=== PATIENT | male | born 1975 | race Caucasian/White ===

== ENCOUNTER 2018-02-04 13:28 | Emergency (ER) | payer SELFPAY ==
[2018-02-04 13:30] VITALS: BP 171/107; PULSE 85; RESP 18; TEMP 36.7; O2SAT 98; BMI 39.5
--- NOTE | 2018-02-04 14:10 | EKG12_ITS ---
Test Reason : SYNCOPE Blood Pressure : / mmHG Vent. Rate : 078 BPM Atrial Rate : 078 BPM P-R Int : 206 ms QRS Dur : 102 ms QT Int : 374 ms P-R-T Axes : 051 015 034 degrees QTc Int : 426 ms Normal sinus rhythm Low voltage QRS (LIMB LEADS) Confirmed by CALVIN CABRERA, JESSEE ([id number]), science editor FIORELLA LOPEZ ([id number]) on 02/08/2018 10:15:25 AM Referred By: MACKENZIE Confirmed By:JESSEE SIMPSON MD
--- NOTE | 2018-02-04 14:12 | ED.DCSUM_ITS ---
- ER Visit Summary Date of Service: 02/04/18 Chief Complaint: Dizziness History of Present Illness: The patient is a 42 M presents for reported dizzy spinning sensation starting yesterday at work. 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 States standing felt room spinning and nausea. There is no syncopal episodes. No lightheaded symptoms. States symptoms was subsiding last evening today worsened again. No vomiting. No chest pains or shortness of breath. No recent sinus infection. States did have some ear pounding sensations.There was no ringing. No ear pain. History of hypertension, states he stopped his lisinopril a month ago due to side effects. States made him feel like a zombie. No urinary symptoms. No previous similar symptoms in the past. Physical Examination: General: Alert and oriented ?3, no acute distress HEENT: Normocephalic, atraumatic. Moist mucosa membranes Neck: supple, nontender. Cardiovascular: Regular rate and rhythm, no murmurs Respiratory: Normal breath sounds, symmetric, no distress Abdomen: Soft, nontender, nondistended Extremities: Nontender, no edema, pulses intact ?4 Neuro: NIH equals 0, [place]-Hallpike was positive to the left. Test Results: EKG: Sinus rate of [address] or T wave changes. Emergency Department Course and Treatment: Nursing protocol obtain EKG with concerns of syncope which was normal. However evaluation more concerns of vertigo with a positive Yung-Hallpike to the left. Performed the Yusef maneuver which improved his symptoms significantly however still nausea. Given meclizine monitored, symptoms improved he was ambulated with no difficulties. Does have elevated blood pressure, states he stopped his medicine as written by the ED lisinopril due to side effects. He did not want any medications that would cause him to be tired and fatigued. Discussed using amlodipine started at 5 mg once a day. He states he is get an appointment with PCP with his mother's physician. He will check his blood pressure in the morning and at night and keep a log. Signs and symptoms discussed return. All questions were answered. Treatment Plan: [] Disposition: Discharge Impression: 1. Vertigo 2. Elevated blood pressure This note was generated with [employer] software. It may contain incorrect words, spelling, and punctuation that were not noted in review of the chart prior to signing ED Disposition - Plan for ED Patient: Disposition: Home or Assisted Living Chief Complaint: Syncope Diagnosis: Vertigo, Elevated blood pressure reading in office without diagnosis of hypertension Instructions: ED BPV Vertigo Prescriptions: Amlodipine [Norvasc] 5 mg PO DAILY #30 tablet Meclizine HCl [Antivert] 25 mg PO TID PRN #15 tablet PRN Reason: Dizziness Referrals: Care Physician,No Primary [Primary Care Provider] - Additional Instructions: Follow-up with physician in the next week for blood pressure checks. Keep a log in the morning and at night of your blood pressure. If spitting returns may performed the same maneuver done in the ED prior to taking your medication.
[2018-02-04] MEDS: Meclizine HCl 25 MG Tablet PO (14:31)
[2018-02-04 14:51] VITALS: BP 158/122; PULSE 88; RESP 18; O2SAT 97
[2018-02-04] MEDS: amLODIPine 5 MG Tablet PO (15:18)
[2018-02-04 15:19] VITALS: BP 161/101; PULSE 70; RESP 18; O2SAT 98
[2018-02-04 16:09] VITALS: BP 139/100; PULSE 78; RESP 18; O2SAT 95
== END 2018-02-04 16:10 | disposition home or self-care (01) ==
PROVIDERS: Emergency Provider Emergency Medicine
DX: R42 Dizziness and giddiness (principal); R03.0 Elevated blood-pressure reading, without diagnosis of hypertension; R11.0 Nausea; I10 Essential (primary) hypertension; Z72.0 Tobacco use
CPT/HCPCS: 93005; 99282

== ENCOUNTER 2018-09-12 13:06 | Emergency (ER) | payer MEDICAID, SELFPAY ==
[2018-09-12 13:09] VITALS: BP 177/107; PULSE 79; RESP 18; TEMP 36.6; O2SAT 97; BMI 39.0
--- NOTE | 2018-09-12 13:33 | CT_ITS ---
STUDY: CT BRAIN WITHOUT CONTRAST REASON FOR EXAM: Male, 42 years old. One week history of vertigo. Hypertension. RADIATION DOSAGE (If Supplied By Facility): CTDIvol = ( 44.99 ) mGy, DLP = ( 812.98 ) mGycm TECHNIQUE: Transaxial CT imaging of the brain was performed without administration of intravenous contrast material. Individualized dose optimization techniques were used for this CT. COMPARISON: No relevant priors. FINDINGS: Normal soft tissue structures. Normal calvarium. Normal size ventricles and extra-axial spaces for the patient's age. Normal white matter tracts of the cerebral hemispheres. Normal basal ganglia and thalami. Normal brainstem. Normal cerebellum. There is no intracranial hemorrhage. There are no findings of an acute ischemic infarction. Mild degree of mucosal thickening of the maxillary sinuses. CT/Brain/Head without Contrast IMPRESSION: Normal unenhanced CT scan of the brain. Electronically Signed: Tommie Arroyo, at 14:31 EDT , Service support ,
--- NOTE | 2018-09-12 13:33 | EKG12_ITS ---
Test Reason : VERTIGO Blood Pressure : / mmHG Vent. Rate : 072 BPM Atrial Rate : 072 BPM P-R Int : 196 ms QRS Dur : 110 ms QT Int : 388 ms P-R-T Axes : 032 061 027 degrees QTc Int : 424 ms Normal sinus rhythm Normal ECG Confirmed by YEE STOREY ([id number]), state editor YAW RENEE ([id number]) on 09/20/2018 8:59:37 AM Referred By: BRITTANIE Confirmed By:YEE STOREY
--- NOTE | 2018-09-12 13:58 | ED.DCSUM_ITS ---
History of Present Illness Chief Complaint: Dizziness Informant: Patient Narrative: Patient presenting for evaluation secondary to vertigo and chest pain. Patient reports that he has been dealing with intermittent chest pain over the course of the last couple years. He does not really seem to be inducible other than currently it has been getting worse when he is having vertiginous episodes. Patient states that over the course of the last 2 weeks he has been dealing with issues with vertigo. He does describe this as a disequilibrium and a room spinning type sensation. He has been undergoing treatment by his primary care initially for treatment of an ear infection, now treatment with meclizine. Patient states that the symptoms definitely are worse with change in position, he denies any visual changes numbness or weakness or speech difficulty. He states that it has been getting worse to the point where now when he is at work he has to hold onto things in order to walk around. He denies any tinnitus. He did have dental work but it was multiple months ago. Past Medical History - Allergies and Home Meds Allergies/Adverse Reactions: Allergies No Known Allergies Allergy (Verified 09/12/18 13:11) Primary Care Physician: Care Physician,No Primary [NON-STAFF] - Smoking Status: Current every day smoker Review of Systems All systems negative except as indicated General: Denies: Chills, Fever, Malaise Eyes: Denies: Visual changes - bilaterally ENT: Denies: Bilateral ear pain Cardiovascular: Reports: Chest pain Respiratory: Denies: Dyspnea Gastrointestinal: Denies: Nausea, Vomiting Skin: Denies: Rash Neurological: Reports: - - Vertigo. Denies: Headache, Weakness, Parasthesia, Numbness Physical Exam Vital Signs/Narrative: Vital Signs Temp Pulse Resp BP Pulse Ox 09/12/18 13:09 98 F 79 18 177/107 H 97 Inital Vital Signs reviewed: Yes General: Well nourished, Well developed, No Acute Distress Head: Normocephalic, Atraumatic Eyes: Perrl, EOMI ENT: Moist mucous membranes, No rhinorrhea, TM's clear Neck: Supple, Nontender, - - No carotid bruits Cardiovascular: Regular rate, Regular rhythm, No murmurs Respiratory: No distress, CTA bilaterally, Chest nontender Abdomen: Soft, Nontender, Nondistended, Normal bowel sounds Back: Nontender, Normal Inspection Extremities: Nontender, No edema Skin: Normal color, No rash Neurological: Alert, Oriented x3, Cranial nerves II-XII grossly intact, Normal Strength, Normal Sensation, - - Negative impulse testing, positive [place]-Hallpike maneuver on the left with some rotary nystagmus and reproduction of symptoms. Negative cerebellar testing. Psychological: Normal affect, Normal Mood Diagnostic/Tx/Re-eval - EKG Initial EKG Interpretation: Sinus Rhythm, - - Normal sinus rhythm with a ventricular rate of 72. Isoelectric ST segments, normal T waves, no evidence of acute ischemia or arrhythmia - Medical Decision Making Patient presented secondary to vertigo and chest pain. Patient's chest pain seems rather atypical, it was worked up with an EKG, CBC chemistry and troponin which were all found to be grossly unremarkable. Patient's vertigo was assessed with a CT brain which was negative. This is clearly reproducible sudden onset sudden offset vertigo with rotary nystagmus with [place]-Hallpike to the left. I do believe this to be peripheral in nature. Patient's symptoms have been present for the last 2 weeks, he will be given referral to ear nose and throat given the refractory nature. Patient was discharged in stable condition. ED Disposition - Plan for ED Patient: Disposition: Home or Assisted Living Diagnosis: Vertigo Instructions: ED BPV Vertigo Referrals: Kyle Loya MD [STAFF PHYSICIAN] - 1 Week if not improving
[2018-09-12 14:04] LABS: Absolute Lymphocyte Count 2.13 X10^3/ul (0.83-4.51); Absolute Neutrophil Count 4.2 X10^3/uL (2.0-7.7); Basophil# 0.04 X10^3/uL; Basophil% 0.6 % (0-1); Eosinophil# 0.15 X10^3/uL; Eosinophils% 2.2 % (0-5); Hematocrit 42.9 % (40-54); Hemoglobin 14.9 g/dl (13.0-16.5); Lymphocyte # 2.13 X10^3/ul (4.0); Lymphocyte % 30.6 % (19-41); Mean Corp Hgb Conc 34.7 g/gl (32-36); Mean Corpuscular Volume 86.5 fL (80-94); Mean Platelet Vol. 8.6 fl (6.2-12.0); Monocyte# 0.44 X10^3/uL; Monocyte% 6.3 % (0-10); Neutrophil # 4.19 X10^3/uL (2.7-7.7); Neutrophil % 60.2 % (47-70); Platelet Count 248 K/mm3 (150-450); RBC Distribution Width CV 13.2 % (11.6-14.6); RBC Distribution Width SD 41.6 fl (35.1-43.9); Red Blood Count 4.96 M/mm3 (4.6-6.2)
[2018-09-12 14:05] VITALS: BP 140/102; PULSE 71; RESP 20; O2SAT 98
[2018-09-12 14:06] LABS: POSITIVE COUNT NO; POSITIVE DIFFERENTIAL NO; POSITIVE MORPHOLOGY NO
[2018-09-12 14:20] LABS: Anion Gap 4 (5-15); BUN 13 mg/dL (7-18); BUN/Creat Ratio 15.2 RATIO (10-20); Chloride 109 mmol/L (98-107); Creatinine, Serum 0.85 mg/dL (0.70-1.30); EST Glomerular Filtration Rate 104 mL/min (>60); Est Glom Filt Rate - Afr Amer 126 mL/min (>60); Estimated Creatinine Clearance 120.58 ml/min; Glucose 109 mg/dL (74-106); Potassium 3.8 mmol/L (3.5-5.1); Sodium Level 140 mmol/L (136-145)
--- NOTE | 2018-09-12 14:20 | RAD_ITS ---
STUDY: X-RAY CHEST REASON FOR EXAM: Male, 42 years old. Dizziness. TECHNIQUE: PA and lateral views of the chest. COMPARISON: None. FINDINGS: EKG electrodes are seen. Hyperinflation. Scattered calcified granulomas. The lungs are clear. There is no demonstrated pleural abnormality. Normal size heart. Normal mediastinum and natalie. Normal visualized pulmonary arteries. Normal visualized aortic arch and descending thoracic aorta. There are mild degenerative changes of the visualized thoracic spine. Normal visualized ribs, clavicles, and shoulders. There is no demonstrated abnormality of the visualized soft tissue structures of the upper abdomen. RAD/Chest PA and Lateral IMPRESSION: Hyperinflation. The lungs are clear. Electronically Signed: Tommie Arroyo, at 14:48 EDT , Service support ,
[2018-09-12 15:09] VITALS: BP 146/101; PULSE 70; RESP 17; O2SAT 98
--- NOTE | 2018-09-12 15:10 | ED.RN ---
PT GIVEN WRITTEN AND VERBAL DISCHARGE INSTRUCTIONS. PT EDUCATED TO FOLLOW UP WITH DR. EASTMAN. EDUCATED TO RETURN TO ED FOR NEW OR WORSENED SX. IV D/C AND COVERED WITH 2X2 GAUZE AND PAPER TAPE. PT DRESSES SELF AND AMBULATES OUT OF DEPT WITH FAMILY MEMBER.
== END 2018-09-12 15:12 | disposition home or self-care (01) ==
PROVIDERS: Emergency Provider Emergency Medicine; Family Provider Nurse Practitioner Family; PCP Nurse Practitioner Family
DX: R42 Dizziness and giddiness (principal); F17.200 Nicotine dependence, unspecified, uncomplicated; R07.9 Chest pain, unspecified
CPT/HCPCS: 70450; 71046; 80048; 84484; 85025; 93005; 99285; A4216

== ENCOUNTER 2018-10-03 12:38 | Emergency (ER) | payer MEDICAID, SELFPAY ==
[2018-10-03 12:39] VITALS: BP 160/102; PULSE 81; RESP 16; TEMP 36.2; O2SAT 97; BMI 38.3
--- NOTE | 2018-10-03 13:00 | EKG12_ITS ---
Test Reason : CP Blood Pressure : / mmHG Vent. Rate : 077 BPM Atrial Rate : 077 BPM P-R Int : 212 ms QRS Dur : 108 ms QT Int : 382 ms P-R-T Axes : 042 -79 028 degrees QTc Int : 432 ms Sinus rhythm with 1st degree A-V block Left axis deviation Abnormal ECG Confirmed by ELHAM CABRERA, CLAUDE ([id number]), editor city BRENDA GARCIA ([id number]) on 10/05/2018 9:12:52 AM Referred By: MAISHA/KLAUDIA Confirmed By:CLAUDE LIZARRAGA MD
--- NOTE | 2018-10-03 13:00 | RAD_ITS ---
STUDY: X-RAY CHEST REASON FOR EXAM: Male, 42 years old. Chest pain and back pain. TECHNIQUE: PA and lateral views of the chest. COMPARISON: Comparison is made with prior study dated September 12, 2018. FINDINGS: EKG electrodes are seen. Scattered calcified granulomas. Hyperinflation. There is no demonstrated pleural abnormality. Normal size heart. Normal mediastinum and natalie. Normal visualized pulmonary arteries. Normal visualized aortic arch and descending thoracic aorta. There are mild degenerative changes of the visualized thoracic spine. Normal visualized ribs, clavicles, and shoulders. There is no demonstrated abnormality of the visualized soft tissue structures of the upper abdomen. RAD/Chest PA and Lateral IMPRESSION: Hyperinflation. Scattered calcified granulomas. Electronically Signed: Tommie Arroyo, at 13:38 EDT , Service support ,
[2018-10-03 13:42] VITALS: PULSE 69; RESP 15; O2SAT 98
--- NOTE | 2018-10-03 14:18 | ED.VIS.GEN ---
History of Present Illness Chief Complaint: Chest Pain Informant: Patient Onset: Today Context: Sudden Onset Timing: Intermittent Quality: Pain Location: Central back that radiated anteriorly Current Severity: - - Absent Maximum Severity: Severe Worsened by: Nothing Relieved by: Nothing Associated Symptoms: No associated symptoms or radiation Narrative: Patient is a 42-year-old male who presents with\chest pain. This is his third visit for similar presentation. His work-up prior to times is negative. He does have history hypertension. He does smoke. He is overweight and has obstructive sleep apnea. He states he is compliant with his machine. He presently is pain-free. He denies leg pain, swelling discoloration. Denies pleuritic pain, hemoptysis or shortness of breath. Nurse informed me that he had a sense of impending doom. Prior similar symptoms: No Recent Illness/Hospitalization: No - Past Medical History (1) History of hypertension Status: Acute (2) Obstructive sleep apnea Status: Acute Past Medical History - Allergies and Home Meds Allergies/Adverse Reactions: Allergies No Known Allergies Allergy (Verified 10/03/18 12:40) Primary Care Physician: Deshaun Hunter, [employer] [Primary Care Provider] - Prior records reviewed: Yes Surgical History: no surgical history Lives: With Family Smoking Status: Current every day smoker Drugs: None Review of Systems General: Denies: Chills, Fever, Malaise, Subjective, Sweats Eyes: Denies: Visual changes - bilaterally, Blurred Vision - bilaterally, Diplopia ENT: Denies: Bilateral ear pain, Rhinorrhea, Sore throat Cardiovascular: Reports: Chest pain. Denies: Palpitations, Heart racing Respiratory: Denies: Dyspnea, Cough, Sputum Musculoskeletal: Reports: Back pain. Denies: Myalgias, Arthralgias, Neck pain, Swelling, Extremity Pain Skin: Reports: Rash, Wounds Neurological: Denies: Headache, Weakness, Parasthesia, Numbness Psych: Reports: Anxiety Hematologic: Denies: Easy bruising, Easy bleeding Allergy: Denies: Uticaria, Swelling of the mouth Physical Exam Vital Signs/Narrative: Vital Signs Temp Pulse Resp BP Pulse Ox 10/03/18 13:42 69 15 98 10/03/18 12:39 97.1 F L 81 16 160/102 H 97 Inital Vital Signs reviewed: Yes General: Well nourished, Well developed, No Acute Distress Head: Normocephalic, Atraumatic Eyes: Perrl, EOMI. Negative for: Pale conjunctiva, Scleral icterus, - ENT: Moist mucous membranes, No rhinorrhea Neck: Supple, Nontender, No lymphadenopathy, No JVD Cardiovascular: Regular rate, Regular rhythm, No murmurs, Normal S1, Normal S2 Respiratory: No distress, CTA bilaterally, Chest nontender Abdomen: Soft, Nontender, Nondistended, Normal bowel sounds, No masses. Negative for: Hepatomegaly, Splenomegaly, Mass, Pulsatile mass Rectal: Deferred Back: Nontender, Normal Inspection. Negative for: CVA tenderness, Spinal tenderness Extremities: Nontender, No edema, - - There is no asymmetry, swelling, discoloration, leg vein distention, palpable cords or tenderness along the distribution of the deep venous system. Skin: Normal color, No rash Neurological: Alert, Oriented x3, Cranial nerves II-XII grossly intact, Normal Strength, Normal Sensation Psychological: - - Patient appears anxious Diagnostic/Tx/Re-eval Impressions Chest X-Ray 10/03/18 13:00 IMPRESSION: Hyperinflation. Scattered calcified granulomas. Electronically Signed: Tommie Arroyo, at 13:38 EDT , Service support , 10/03/18 13:00 Chest PA and Lateral [RAD] Stat Laboratory Results 10/03/18 13:06 Troponin I < 0.015 - Rhythm Strip Rhythm Strip: Sinus Rhythm Rate: 69 Ectopy: None - EKG Initial EKG Interpretation: Sinus Rhythm - Ventricular rate is 77. NV interval is slightly prolonged at 212 ms., First-degree AV block. QRS duration 108 ms. QT interval is normal. There is no acute ischemic changes noted. [place] to the left. Prior: Unchanged - Medical Decision Making She presents with atypical pain. He has had prior visits with no etiology determined. He does report anxiousness. His heart score is 1. With essentially a normal EKG other than first-degree AV block and left axis and normal troponin based on recent literature patients at low risk for any event occurring within the next 30 days i.e. [place], ischemia requiring catheterization angioplasty or . Therefore he will be discharged home to follow-up with his physician. Patient's blood pressure is elevated however there is no neurologic respiratory or cardiac symptoms to warrant any further testing. ED Disposition - Plan for ED Patient: Diagnosis: Chest pain, Hypertension Instructions: ED HTN Established, ED Chest Pain NonCardiac Referrals: Deshaun Hunter, [employer] [Primary Care Provider] - 3-5 Days
--- NOTE | 2018-10-03 14:22 | ED.DCSUM_ITS ---
History of Present Illness Chief Complaint: Chest Pain Informant: Patient Onset: Today Context: Sudden Onset Timing: Intermittent Quality: Pain Location: Central back that radiated anteriorly Current Severity: - - Absent Maximum Severity: Severe Worsened by: Nothing Relieved by: Nothing Associated Symptoms: No associated symptoms or radiation Narrative: Patient is a 42-year-old male who presents with\chest pain. This is his third visit for similar presentation. His work-up prior to times is negative. He does have history hypertension. He does smoke. He is overweight and has obstructive sleep apnea. He states he is compliant with his machine. He presently is pain-free. He denies leg pain, swelling discoloration. Denies pleuritic pain, hemoptysis or shortness of breath. Nurse informed me that he had a sense of impending doom. Prior similar symptoms: No Recent Illness/Hospitalization: No - Past Medical History (1) History of hypertension Status: Acute (2) Obstructive sleep apnea Status: Acute Past Medical History - Allergies and Home Meds Allergies/Adverse Reactions: Allergies No Known Allergies Allergy (Verified 10/03/18 12:40) Primary Care Physician: Deshaun Hunter, [employer]IST[employer] [Primary Care Provider] - Prior records reviewed: Yes Surgical History: no surgical history Lives: With Family Smoking Status: Current every day smoker Drugs: None Review of Systems General: Denies: Chills, Fever, Malaise, Subjective, Sweats Eyes: Denies: Visual changes - bilaterally, Blurred Vision - bilaterally, Diplopia ENT: Denies: Bilateral ear pain, Rhinorrhea, Sore throat Cardiovascular: Reports: Chest pain. Denies: Palpitations, Heart racing Respiratory: Denies: Dyspnea, Cough, Sputum Musculoskeletal: Reports: Back pain. Denies: Myalgias, Arthralgias, Neck pain, Swelling, Extremity Pain Skin: Reports: Rash, Wounds Neurological: Denies: Headache, Weakness, Parasthesia, Numbness Psych: Reports: Anxiety Hematologic: Denies: Easy bruising, Easy bleeding Allergy: Denies: Uticaria, Swelling of the mouth Physical Exam Vital Signs/Narrative: Vital Signs Temp Pulse Resp BP Pulse Ox 10/03/18 13:42 69 15 98 10/03/18 12:39 97.1 F L 81 16 160/102 H 97 Inital Vital Signs reviewed: Yes General: Well nourished, Well developed, No Acute Distress Head: Normocephalic, Atraumatic Eyes: Perrl, EOMI. Negative for: Pale conjunctiva, Scleral icterus, - ENT: Moist mucous membranes, No rhinorrhea Neck: Supple, Nontender, No lymphadenopathy, No JVD Cardiovascular: Regular rate, Regular rhythm, No murmurs, Normal S1, Normal S2 Respiratory: No distress, CTA bilaterally, Chest nontender Abdomen: Soft, Nontender, Nondistended, Normal bowel sounds, No masses. Negativ e for: Hepatomegaly, Splenomegaly, Mass, Pulsatile mass Rectal: Deferred Back: Nontender, Normal Inspection. Negative for: CVA tenderness, Spinal ten derness Extremities: Nontender, No edema, - - There is no asymmetry, swelling, discoloration, leg vein distention, palpable cords or tenderness along the distribution of the deep venous system. Skin: Normal color, No rash Neurological: Alert, Oriented x3, Cranial nerves II-XII grossly intact, Normal Strength, Normal Sensation Psychological: - - Patient appears anxious Diagnostic/Tx/Re-eval Impressions Chest X-Ray 10/03/18 13:00 IMPRESSION: Hyperinflation. Scattered calcified granulomas. Electronically Signed: Tommie Arroyo, at 13:38 EDT , Service support , 10/03/18 13:00 Chest PA and Lateral [RAD] Stat Laboratory Results 10/03/18 13:06 Troponin I < 0.015 - Rhythm Strip Rhythm Strip: Sinus Rhythm Rate: 69 Ectopy: None - EKG Initial EKG Interpretation: Sinus Rhythm - Ventricular rate is 77. SD interval is slightly prolonged at 212 ms., First-degree AV block. QRS duration 108 ms. QT interval is normal. There is no acute ischemic changes noted. [place] to the left. Prior: Unchanged - Medical Decision Making She presents with atypical pain. He has had prior visits with no etiology determined. He does report anxiousness. His heart score is 1. With essentially a normal EKG other than first-degree AV block and left axis and normal troponin based on recent literature patients at low risk for any event occurring within the next 30 days i.e. [place], ischemia requiring catheterization angioplasty or . Therefore he will be discharged home to follow-up with his physician. Patient's blood pressure is elevated however there is no neur ologic respiratory or cardiac symptoms to warrant any further testing. ED Disposition - Plan for ED Patient: Diagnosis: Chest pain, Hypertension Instructions: ED HTN Established, ED Chest Pain NonCardiac Referrals: Deshaun Hunter, [employer]ET[employer] ASSISTANT-C [Primary Care Provider] - 3-5 Days
[2018-10-03 14:34] VITALS: BP 140/92; PULSE 75; RESP 15; O2SAT 97
[2018-10-03 15:08] VITALS: BP 141/102; PULSE 72; RESP 16; O2SAT 98
[2018-10-03 15:17] VITALS: BP 137/93; PULSE 68; RESP 15; O2SAT 98
--- NOTE | 2018-10-03 15:18 | ED.RN ---
PT GIVEN WRITTEN AND VERBAL DISCHARGE INSTRUCTIONS. PT VERBALIZES UNDERSTANDING AND DENIES ANY FURTHER QUESTIONS. PT IV D/C AND COVERED WITH 2X2 GAUZE AND PAPER TAPE. PT AMBULATES OUT OF DEPT WITH FAMILY.
== END 2018-10-03 15:19 | disposition home or self-care (01) ==
LOC: ED 13:21
PROVIDERS: Emergency Provider Emergency Medicine; Family Provider Nurse Practitioner Family; PCP Nurse Practitioner Family
DX: R07.9 Chest pain, unspecified (principal); I10 Essential (primary) hypertension; I44.0 Atrioventricular block, first degree; G47.33 Obstructive sleep apnea (adult) (pediatric); F17.200 Nicotine dependence, unspecified, uncomplicated
CPT/HCPCS: 71046; 84484; 93005; 99285; A4216

== ENCOUNTER 2020-05-02 12:09 | Emergency (ER) | payer MEDICAID, SELFPAY ==
[2020-05-02 12:09] VITALS: BP 164/116; PULSE 78; RESP 18; TEMP 35.6; O2SAT 98; BMI 44.6
--- NOTE | 2020-05-02 12:29 | RAD_ITS ---
STUDY: X-RAY CHEST REASON FOR EXAM: Male, 44 years old. COUGH, DIZZY TECHNIQUE: Frontal view of the chest COMPARISON: 03 October 2018 FINDINGS: There is a benign calcified right midlung granuloma. The lungs are clear and expanded. There is no demonstrated pleural abnormality. Normal size heart. Normal mediastinum and natalie. Normal visualized pulmonary arteries. Normal visualized aortic arch and descending thoracic aorta. Normal visualized thoracic spine. Normal visualized ribs, clavicles, and shoulders. There is no demonstrated abnormality of the visualized soft tissue structures of the upper abdomen. RAD/Chest 1 View (Portable) IMPRESSION: Normal x-ray examination of the chest. Electronically Signed: Hola Phillips, at 13:10 EST Tel , Service support ,
--- NOTE | 2020-05-02 12:30 | ED.DCSUM_ITS ---
- ER Visit Summary Date of Service: 05/02/20 Chief Complaint: Shortness of breath and dizziness History of Present Illness: The patient is a 44 M who presents with shortness of breath and dizziness that has been constant for the past 1-1/2 weeks. Patient states he feels lightheaded and dizzy. Patient states he feels like he might pass out. Patient states this is worse in the evening and better when he wakes up in the morning. Patient admits to some shortness of breath but denies any cough. Patient denies any fevers or chills. Patient admits to a mild sore throat. Patient denies any rhinorrhea. Patient denies any visual changes. Patient denies any loss of taste or smell. Physical Examination: Vital signs are stable. Patient is afebrile. Patient is in no acute distress. Oral mucosa is pink and moist. Neck is supple. Trachea is midline. There is no JVD noted. Heart was regular rate and rhythm. Lungs are clear but diminished in the bases bilaterally. Abdomen is soft. Bowel sounds are normal. There is no tenderness. There is no rebound or guarding noted. Skin is warm dry. Cranial nerves II through XII are intact. There are no focal motor or sensory deficits noted. Extremities are intact. There is no calf tenderness or edema. Test Results: Portable 1 view chest x-ray was obtained. On my interpretation, lung goldsmith are clear. There is normal cardiac silhouette. Bony thorax is normal. There is no acute process noted. Radiologist also read the x-ray and agrees. CBC and comprehensive metabolic profile were within normal limits. COVID-19 rapid antigen test was negative. Emergency Department Course and Treatment: Patient was given albuterol here. Patient was feeling better on reevaluation. Patient was instructed to follow-up with his primary care physician in 5 to 7 days. Patient understood and was agreeable with the plan. All questions were answered. Disposition: Discharge home Impression: COPD exacerbation This note was generated with [employer] dictation software. It may contain incorrect words, spelling, and punctuation that were not noted in review of the chart prior to signing ED Disposition - Plan for ED Patient: Disposition: Home or Assisted Living Diagnosis: COPD exacerbation Instructions: ED COPD Flare Referrals: Deshaun Hunter FLOORING INSTALLER, FLOORING INSTALLER-C [NON-STAFF] - 5-7 Days
[2020-05-02 12:56] LABS: Absolute Lymphocyte Count 2.24 X10^3/uL (0.83-4.51); Absolute Neutrophil Count 3.2 X10^3/uL (2.0-7.7); Basophil# 0.05 X10^3/uL; Basophil% 0.8 % (0-1); Eosinophil# 0.22 X10^3/uL; Eosinophils% 3.5 % (0-5); Hematocrit 42.5 % (40-54); Hemoglobin 14.9 g/dL (13.0-16.5); Lymphocyte # 2.24 X10^3/ul (4.0); Mean Corp Hgb Conc 35.1 g/dL (32-36); Mean Corpuscular Hgb 29.4 pg (27.0-32.0); Mean Platelet Vol. 8.1 fl (6.2-12.0); Monocyte# 0.47 X10^3/uL; Monocyte% 7.6 % (0-10); NRBC Flagged by Analyzer 0 % (0-5); Neutrophil % 51.5 % (47-70); Platelet Count 301 K/mm3 (150-450); RBC Distribution Width CV 13.2 % (11.6-14.6); RBC Distribution Width SD 39.8 fl (35.1-43.9); Red Blood Count 5.06 M/mm3 (4.6-6.2); White Blood Count 6.2 K/mm3 (4.4-11.0)
[2020-05-02 12:59] VITALS: BP 153/100; PULSE 74; RESP 20; TEMP 35.6; O2SAT 96
[2020-05-02 13:06] VITALS: O2SAT 96
[2020-05-02 13:13] LABS: ALB/GLOB Ratio 1.1 RATIO (0.9-2.4); AST(SGOT) 25 U/L (15-37); Alanine Aminotransfer ALT/SGPT 60 U/L (16-61); Alkaline Phosphatase 67 U/L (45-117); Anion Gap 8 (5-15); BUN 14 mg/dL (7-18); BUN/Creat Ratio 13.9 RATIO (10-20); Calcium,Total 8.9 mg/dL (8.5-10.1); Chloride 103 mmol/L (98-107); Creatinine, Serum 1.01 mg/dL (0.70-1.30); EST Glomerular Filtration Rate 85 mL/min (>60); Est Glom Filt Rate - Afr Amer 103 mL/min (>60); Estimated Creatinine Clearance 99.41 ml/min; Globulin 3.6 g/dL (2.2-4.2); Glucose 147 mg/dL (74-106); Potassium 3.7 mmol/L (3.5-5.1); Protein, Total 7.6 g/dL (6.4-8.2); Sodium Level 138 mmol/L (136-145)
[2020-05-02 14:52] VITALS: BP 164/99; PULSE 76; RESP 17; RESP 18; O2SAT 96
== END 2020-05-02 14:53 | disposition home or self-care (01) ==
PROVIDERS: Emergency Provider Emergency Medicine; PCP Student in an Organized Health Care Education/Training Program
DX: J44.1 Chronic obstructive pulmonary disease with (acute) exacerbation (principal); E66.9 Obesity, unspecified; I10 Essential (primary) hypertension; Z87.891 Personal history of nicotine dependence; Z90.49 Acquired absence of other specified parts of digestive tract
CPT/HCPCS: 71045; 80053; 85025; 87426; 99284; A4216

== ENCOUNTER 2020-06-03 01:48 | Emergency (ER) | payer MEDICAID, SELFPAY ==
[2020-06-03 01:50] VITALS: BP 167/120; PULSE 111; RESP 18; TEMP 36.5; O2SAT 98; BMI 52.7
--- NOTE | 2020-06-03 01:55 | ED.VIS.GEN ---
History of Present Illness Chief Complaint: Lower Extremity Injury Informant: Patient Narrative: Patient stated just prior to arrival he accidentally had varicose veins start bleeding on his left lateral ankle. Came in for further evaluation. EMS was called out and wrapped it. He is not sure if is still bleeding. Current severity is mild. Never had this happen before. - Past Medical History (1) History of hypertension Status: Acute (2) Obstructive sleep apnea Status: Acute Past Medical History - Allergies and Home Meds Allergies/Adverse Reactions: Allergies No Known Allergies Allergy (Verified 06/03/20 01:50) Primary Care Physician: Reji Ortiz DO [Primary Care Provider] - Prior records reviewed: Yes Past Medical History: - - See problem list Surgical History: no surgical history Smoking Status: Former smoker Alcohol: None Drugs: None Review of Systems General: Denies: Chills, Fever, Sweats Eyes: Denies: Visual changes - bilaterally, Diplopia ENT: Denies: Rhinorrhea, Sore throat Cardiovascular: Denies: Chest pain, Palpitations Respiratory: Denies: Dyspnea, Cough, Dyspnea on exertion Gastrointestinal: Denies: Abdominal pain, Nausea, Vomiting, Diarrhea, Melena, Hematochezia Genitourinary: Denies: Dysuria, Hematuria, Frequency Musculoskeletal: Denies: Back pain, Extremity Pain Skin: Reports: Wounds. Denies: Rash Neurological: Denies: Headache, Weakness, Numbness Physical Exam Vital Signs/Narrative: Vital Signs Temp Pulse Resp BP Pulse Ox 06/03/20 01:50 97.7 F L 111 H 18 167/120 H 98 General: Well nourished, Well developed, No Acute Distress Head: Normocephalic, Atraumatic Eyes: Perrl, EOMI ENT: Moist mucous membranes, No rhinorrhea Neck: Supple, Nontender Cardiovascular: Regular rate, Regular rhythm, No murmurs Respiratory: No distress, CTA bilaterally, Chest nontender Abdomen: Soft, Nontender, Nondistended, Normal bowel sounds Back: Nontender, Normal Inspection Extremities: Nontender, No edema Skin: Normal color, No rash, - - Varicose vein site left lateral ankle stopped bleeding Neurological: Alert, Oriented x3, Cranial nerves II-XII grossly intact, Normal Strength, Normal Sensation Psychological: Normal affect, Normal Mood Diagnostic/Tx/Re-eval - Medical Decision Making Patient reassured. His varicose vein stop the bleeding. Jorgito wrap will be applied he will keep this on for 24 hours and follow-up as an outpatient ED Disposition - Plan for ED Patient: Disposition: Home or Assisted Living Diagnosis: Bleeding from varicose vein Instructions: ED Varicose Veins Referrals: Reji Ortiz DO [Primary Care Provider] -
== END 2020-06-03 02:11 | disposition home or self-care (01) ==
LOC: ED 02:04
PROVIDERS: Emergency Provider Emergency Medicine; PCP Student in an Organized Health Care Education/Training Program
DX: I83.892 Varicose veins of left lower extremity with other complications (principal); I10 Essential (primary) hypertension; G47.33 Obstructive sleep apnea (adult) (pediatric); Z87.891 Personal history of nicotine dependence
CPT/HCPCS: 99282

== ENCOUNTER 2020-06-04 15:14 | Emergency (ER) | payer MEDICAID, SELFPAY ==
[2020-06-03 01:50] VITALS: BMI 52.7
[2020-06-04 15:14] VITALS: BP 164/90; PULSE 78; RESP 20; TEMP 36.4; O2SAT 96; BMI 51.1
--- NOTE | 2020-06-04 15:38 | EKG12_ITS ---
Test Reason : Blood Pressure : / mmHG Vent. Rate : 079 BPM Atrial Rate : 079 BPM P-R Int : 214 ms QRS Dur : 110 ms QT Int : 382 ms P-R-T Axes : 049 -02 023 degrees QTc Int : 438 ms Sinus rhythm with 1st degree A-V block Otherwise normal ECG Confirmed by KAILASH CABRERA, JOHNATHAN ([id number]), editor producer YAW RENEE ([id number]) on 06/08/2020 12:26:10 P M Referred By: CL Confirmed By:ROB LINDER MD
--- NOTE | 2020-06-04 15:38 | CT_ITS ---
STUDY: CT ABDOMEN AND PELVIS WITH CONTRAST REASON FOR EXAM: Male, 44 years old. LEFT SIDE ABD PAIN X 2 MONTHS, DIZZY, SOB, HX CHOLECYCTECTOMY RADIATION DOSAGE (If Supplied By Facility): CTDIvol = ( 20.4 ) mGy, DLP = ( 1408.30 ) mGycm TECHNIQUE: Transaxial images were obtained from the dome of the diaphragm to the symphysis pubis without oral contrast. IV 100mL Isovue-300 was administered. Sagittal and coronal images were reconstructed. Individualized dose optimization techniques were used for this CT. COMPARISON: None. FINDINGS: The visualized lung bases are unremarkable. The visualized portions of the heart are within normal limits. Normal liver. There are surgical clips in the gallbladder fossa consistent with a prior cholecystectomy. Normal spleen. Normal pancreas. Normal bilateral adrenal glands. Normal right kidney. Normal left kidney. Normal visualized stomach. Normal small intestine. Normal colon. The appendix is visualized and appears normal. Normal abdominal aorta. Normal inferior vena cava. Normal retroperitoneum. Normal urinary bladder. Normal abdominal wall. Normal osseous structures. CT/Abdomen/Pelvis W IV Cont ONLY IMPRESSION: Normal enhanced CT of the abdomen and pelvis. Electronically Signed: Deshaun Yoon MD at 17:46 EST Tel , Service support ,
--- NOTE | 2020-06-04 15:40 | ED.DCSUM_ITS ---
History of Present Illness Chief Complaint: Abd Pain Informant: Patient Narrative: 44-year-old male with past medical history of COPD presents with left-sided abdominal pain. States is been present over the past 2 months. Worsening over the past 2 to 3 days. Describes as aching. States that initially it just felt like a pressure which has become more sharp in nature. States he has nausea without vomiting. Denies any constipation, diarrhea, urinary symptoms. Denies any trauma. States has been slightly dizzy. Patient also concerned because he is slightly short of breath. Denies any fever, chills, cough. Past Medical History - Allergies and Home Meds Allergies/Adverse Reactions: Allergies No Known Allergies Allergy (Verified 06/04/20 15:16) Primary Care Physician: Reji Ortiz DO [Primary Care Provider] - Prior records reviewed: Yes Past Medical History: - - COPD Surgical History: no surgical history Lives: Alone Smoking Status: Former smoker Alcohol: None Drugs: None Review of Systems General: Denies: Chills, Fever, Sweats Eyes: Denies: Visual changes - bilaterally, Diplopia ENT: Denies: Rhinorrhea, Sore throat Cardiovascular: Denies: Chest pain, Palpitations Respiratory: Reports: Dyspnea. Denies: Cough, Dyspnea on exertion Gastrointestinal: Reports: Abdominal pain, Nausea. Denies: Vomiting, Diarrhea, Melena, Hematochezia Genitourinary: Denies: Dysuria, Hematuria, Frequency Musculoskeletal: Denies: Back pain, Extremity Pain Skin: Denies: Rash, Wounds Neurological: Denies: Headache, Weakness, Numbness Physical Exam Vital Signs/Narrative: Vital Signs Temp Pulse Resp BP Pulse Ox 06/04/20 15:14 97.5 F L 78 20 H 164/90 H 96 Inital Vital Signs reviewed: Yes General: Well nourished, Well developed, No Acute Distress Head: Normocephalic, Atraumatic Eyes: Perrl, EOMI ENT: Moist mucous membranes, No rhinorrhea Neck: Supple, Nontender Cardiovascular: Regular rate, Regular rhythm, No murmurs Respiratory: No distress, CTA bilaterally, Chest nontender Abdomen: Soft, Nondistended, Normal bowel sounds, - - TTP of the left abdomen. No rebound. Back: Nontender, Normal Inspection Extremities: Nontender, No edema Skin: Normal color, No rash Neurological: Alert, Oriented x3, Cranial nerves II-XII grossly intact, Normal Strength, Normal Sensation Psychological: Normal affect, Normal Mood Diagnostic/Tx/Re-eval Clinical Impression(s) from Imaging Studies Abdomen/Pelvis CT 06/04/20 15:38 IMPRESSION: Normal enhanced CT of the abdomen and pelvis. Electronically Signed: Deshaun Yoon MD at 17:46 EST Tel , Service support , Laboratory Data 06/04/20 06/04/20 06/04/20 16:10 16:10 17:25 WBC 6.5 RBC 4.82 Hgb 14.1 Hct 40.5 MCV 84.0 MCH 29.3 MCHC 34.8 RDW Std Deviation 39.4 RDW Coeff of Betsy 12.9 Plt Count 300 MPV 8.1 Immature Gran % (Auto) 0.500 Neut % (Auto) 57.1 Lymph % (Auto) 32.9 [place] % (Auto) 6.9 Eos % (Auto) 1.7 Baso % (Auto) 0.9 Absolute Neuts (auto) 3.7 Absolute Lymphs (auto) 2.14 Nucleated RBC % 0 Sodium 140 Potassium 3.6 Chloride 106 Carbon Dioxide 29.0 Anion Gap 5 BUN 18 Creatinine 1.09 Estim Creat Clear Calc 92.11 Est GFR (MDRD) Af Amer 94 Est GFR (MDRD) Non-Af 78 BUN/Creatinine Ratio 16.5 Glucose 100 Calcium 8.9 Total Bilirubin 0.30 AST 23 ALT 48 Alkaline Phosphatase 71 Troponin I < 0.015 Total Protein 7.3 Albumin 3.9 Globulin 3.4 Albumin/Globulin Ratio 1.1 Lipase 118 Urine Color Yellow Urine Clarity Clear Urine pH 5.0 Ur Specific [place] 1.020 Urine Protein Negative Urine Glucose (UA) Normal Urine Ketones 5 H Urine Occult Blood Negative Urine Nitrite Negative Urine Bilirubin Negative Urine Urobilinogen Normal Ur Leukocyte Esterase 25 H Urine RBC 0 SEEN Urine WBC 0-5 SEEN Ur Squamous Epith Cells 0 SEEN Urine Bacteria 0 SEEN Urine Mucus RARE - Rhythm Strip Rhythm Strip: Sinus Rhythm Rate: 79 Ectopy: None - EKG Initial EKG Interpretation: Sinus Rhythm - Him at 79 bpm. NV interval 214 ms with first- degree AV block. QTC of 438 ms. No evidence of acute ischemia. - Medical Decision Making Patient appears well and nontoxic. Tenderness to the left mid abdomen. No overlying skin changes. Lungs clear on exam. Patient given Zofran and morphine with improvement of his symptoms. No leukocytosis. CT of the abdomen pelvis negative. Lab work within normal limits. Unclear the cause of the patient's abdominal pain. He will be given Bentyl and Zofran for home as well as gastroenterologic follow-up. EKG nonischemic. Patient's troponin is negative. I asked to return for new or worsening symptoms. Patient agreeable and stable at time of discharge. Impression: 1. Abdominal pain 2. Dyspnea 3. COPD ED Disposition - Plan for ED Patient: Disposition: Home or Assisted Living Instructions: ED Abdominal Pain Excl Appendx Male Prescriptions: Dicyclomine HCl [Bentyl] 20 mg PO TIDAC #20 cap Prescription Printed Ondansetron [Zofran Odt] 4 mg PO Q8H PRN PRN #12 tab PRN Reason: Nausea Prescription Printed Referrals: Reji Ortiz DO [Primary Care Provider] - 2 Days
[2020-06-04] MEDS: 0.9% Normal Saline 1,000 ML 1000 ML IV (16:07)
[2020-06-04] MEDS: Morphine 4 MG/ML Syringe IV (16:09)
[2020-06-04] MEDS: Ondansetron 4 MG/2 ML Vial IV (16:11)
[2020-06-04 16:18] LABS: Absolute Lymphocyte Count 2.14 X10^3/uL (0.83-4.51); Absolute Neutrophil Count 3.7 X10^3/uL (2.0-7.7); Basophil# 0.06 X10^3/uL; Basophil% 0.9 % (0-1); Eosinophil# 0.11 X10^3/uL; Eosinophils% 1.7 % (0-5); Hematocrit 40.5 % (40-54); Hemoglobin 14.1 g/dL (13.0-16.5); Lymphocyte # 2.14 X10^3/ul (4.0); Lymphocyte % 32.9 % (19-41); Mean Corp Hgb Conc 34.8 g/dL (32-36); Mean Corpuscular Hgb 29.3 pg (27.0-32.0); Mean Platelet Vol. 8.1 fl (6.2-12.0); Monocyte# 0.45 X10^3/uL; Monocyte% 6.9 % (0-10); NRBC Flagged by Analyzer 0 % (0-5); Neutrophil # 3.71 X10^3/uL (2.7-7.7); Neutrophil % 57.1 % (47-70); Platelet Count 300 K/mm3 (150-450); RBC Distribution Width CV 12.9 % (11.6-14.6); RBC Distribution Width SD 39.4 fl (35.1-43.9); Red Blood Count 4.82 M/mm3 (4.6-6.2); White Blood Count 6.5 K/mm3 (4.4-11.0)
[2020-06-04 16:36] LABS: Albumin, Serum 3.9 g/dL (3.2-5.0); BUN 18 mg/dL (7-18); BUN/Creat Ratio 16.5 RATIO (10-20); Creatinine, Serum 1.09 mg/dL (0.70-1.30); EST Glomerular Filtration Rate 78 mL/min (>60); Est Glom Filt Rate - Afr Amer 94 mL/min (>60); Estimated Creatinine Clearance 92.11 ml/min; Glucose 100 mg/dL (74-106); Protein, Total 7.3 g/dL (6.4-8.2)
[2020-06-04 16:37] LABS: ALB/GLOB Ratio 1.1 RATIO (0.9-2.4); AST(SGOT) 23 U/L (15-37); Alanine Aminotransfer ALT/SGPT 48 U/L (16-61); Alkaline Phosphatase 71 U/L (45-117); Anion Gap 5 (5-15); Calcium,Total 8.9 mg/dL (8.5-10.1); Chloride 106 mmol/L (98-107); Globulin 3.4 g/dL (2.2-4.2); Lipase 118 U/L (73-393); Potassium 3.6 mmol/L (3.5-5.1); Sodium Level 140 mmol/L (136-145)
[2020-06-04 17:30] LABS: Bacteria 0 SEEN /hpf (None Seen); Red Blood Cells-Urine 0 SEEN /hpf (0-5); Squamous Epithelial Cells - UA 0 SEEN /hpf (0-5)
[2020-06-04 17:37] LABS: Color, Urine Yellow (Yellow); Glucose, Dipstick Normal (Normal); Ketone-Dipstick 5 mg/dl (Negative); Leukocyte Esterase-Dipstick 25 /ul (Negative); Nitrite-Dipstick Negative (Negative); Occult Blood-Urine Negative /ul (Negative); Protein-Dipstick Negative (Negative); Urine Bilirubin Dipstick Negative (Negative); Urine Clarity Clear (Clear); Urine Urobilinogen Normal (Normal)
[2020-06-04 17:46] LABS: Mucous, Urine RARE /hpf (<or=2+); White Blood Cells 0-5 SEEN /hpf (0-5)
[2020-06-04 17:53] VITALS: BP 140/73; O2SAT 94
== END 2020-06-04 18:22 | disposition home or self-care (01) ==
PROVIDERS: Emergency Provider Emergency Medicine; PCP Student in an Organized Health Care Education/Training Program
DX: R10.9 Unspecified abdominal pain (principal); R06.00 Dyspnea, unspecified; J44.9 Chronic obstructive pulmonary disease, unspecified; I44.0 Atrioventricular block, first degree; Z87.891 Personal history of nicotine dependence
CPT/HCPCS: 74177; 80053; 81001; 83690; 84484; 85025; 93005; 96361; 96374; 96375; 99283; J7030; Q9967; J2405

== ENCOUNTER 2021-01-29 12:42 | Emergency (ER) | payer MEDICAID, SELFPAY ==
[2021-01-29 12:43] VITALS: BP 160/106; PULSE 80; RESP 18; TEMP 36.6; O2SAT 100; BMI 52.2
[2021-01-29] MEDS: Cephalexin 250 MG Capsule 500 MG PO (13:44)
[2021-01-29] MEDS: Smz/Tmp Ds Tablet 1 TABLET PO (13:44)
[2021-01-29] MEDS: Ondansetron ODT 4 MG Tablet PO (13:44)
--- NOTE | 2021-01-29 13:52 | EX.ED.DYSGE1 ---
HPI History of Present Illness Chief Complaint: Cellulitis Informant: patient Narrative Narrative: Patient is a 45-year-old male with history of hypertension, obstructive sleep apnea, COPD and chronic swelling of his lower extremities presenting with redness, warmth and pain of his right lower extremity. Patient states he was stung by a bee on 01/21, 8 days ago. He had localized redness and swelling and then 2 to 3 days later had increased redness. He states over the last day or 2 he has had increased redness and last night he marked the wound edges. It spread past the markings which is what brought him into the ER today. He has noticed this morning he had a little bit of nausea and just has been feeling well. No report of any fever. No respiratory symptoms. No other complaints at this time. [facility] Medical History (Updated 01/29/21 @ 14:[address] Fadia Song, DO) COPD (chronic obstructive pulmonary disease) HTN (hypertension) Home Medications amlodipine 10 mg PO DAILY 05/02/20 [History Last Taken Unknown] budesonide-formoterol 2 puff INHALATION BID 05/02/20 [History Last Taken Unknown] meclizine 25 mg PO BID PRN 05/02/20 [History Last Taken Unknown] paroxetine HCl 20 mg PO DAILY 05/02/20 [History Last Taken Unknown] cephalexin 500 mg PO Q6 #28 cap 01/29/21 [Rx Last Taken Unknown] ondansetron 4 mg PO Q6H PRN #14 tab 01/29/21 [Rx Last Taken Unknown] sulfamethoxazole-trimethoprim [Bactrim DS] 1 tab PO BID #14 tab 01/29/21 [Rx Last Taken Unknown] Allergy/AdvReac Type Severity Reaction Status Date / Time No Known Allergies Allergy Verified 01/29/21 12:45 Surgical History (Updated 01/29/21 @ 12:50 by Augusta Medina) Hx of cholecystectomy Social History Smoking Status: Former smoker ROS ROS ED Constitutional Constitutional ED: Denies chills or fever(s) Eyes Eyes: Denies blurry vision or loss of vision ENT ENT ED: Denies rhinorrhea or sore throat Cardiovascular Cardiovascular: Denies chest pain or dizziness Respiratory/Chest Respiratory/Chest: Denies cough or dyspnea Gastrointestinal Gastrointestinal: Denies nausea or vomiting Genitourinary Genitourinary ED: Denies dysuria or hematuria Musculoskeletal Musculoskeletal: Reports other Details: right leg pain ; Denies arthralgias or myalgias Integumentary Reports rash Neurologic Neurologic: Denies focal weakness or headache(s) Psychiatric Psychiatric: Denies anxiety or behavioral changes EXAM Physical Exam Const Vital Signs: 01/29/21 12:43 Temperature 97.9 F Temperature Source Temporal Pulse Rate 80 Respiratory Rate 18 Blood Pressure 160/106 H Blood Pressure Mean 124 Pulse Ox 100 Oxygen Delivery Method Room Air Positive well nourished, well developed and obese General Appearance ED: well developed Nutritional Appearance: obese HEENT Reports moist mucous membranes Eyes PERRL Neck supple Chest Wall inspection of chest normal Resp normal respiratory effort and clear to auscultation bilaterally Cardio regular rate, regular rhythm and no murmurs Extremity Extremity Narrative: Nonpitting edema right lower extremity, more pronounced in the left. Tenderness of the right distal anterior leg. No palpable cords. 2+ DP pulses. General Extremety ED: Yes edema and tenderness General Extremity: edema Neuro oriented x3 Sensorium / Orientation: alert Motor Exam: Negative for general weakness Psych mental status grossly normal Skin Skin Narrative: Erythema and warmth of the right anterior mid vieira extending down to the ankle. No circumferential lesions. No fluctuance or blisters appreciated. Patient has chronic skin changes on the contralateral side consistent with venous stasis MDM MDM MDM Narrative Medical decision making narrative: Patient evaluated for worsening redness and swelling of the right lower extremity in the setting of bee sting a little over 1 week ago. Clinically patient has a cellulitis. I suspect a localized inflammation that predisposed to cellulitis. He overall is very well-appearing. He is afebrile. I do not think he requires blood work at this time. There is no associated lymphangitic streaking. No crepitus. I do not think this is a DVT. Patient is given Zofran as well as first dose of Bactrim and Keflex in the ER. While in the ER patient does request his Covid vaccine. He is given first dose of the Pfizer vaccine. Patient is counseled on signs and symptoms requiring return to the emergency room. Patient verbalizes agreement and understand this plan. Patient discharged home in stable and improved condition. Discharge Plan Triage Chief Complaint: Cellulitis ED Provider: Fadia Song Dx/Rx/DC Orders Clinical Impression: Cellulitis of right anterior lower leg, COVID-19 vaccine administered Instructions: ED Cellulitis Prescriptions: New ondansetron 4 mg tablet,disintegrating 4 mg PO Q6H PRN (Reason: nausea and vomiting) Qty: 14 RF: 0 cephalexin 500 mg capsule 500 mg PO Q6 Qty: 28 RF: 0 sulfamethoxazole-trimethoprim [Bactrim DS] 800-160 mg tablet 1 tab PO BID Qty: 14 RF: 0 No Action paroxetine HCl 20 MG tablet 20 mg PO DAILY RF: 0 budesonide-formoterol 1 INHALER inhaler 2 puff INHALATION BID RF: 0 amlodipine 5 MG tablet 10 mg PO DAILY RF: 0 meclizine 25 MG tablet 25 mg PO BID PRN (Reason: Dizziness) RF: 0 Primary Care Provider: Reji Ortiz Referrals: Reji Ortiz DO [Primary Care Provider] - Disposition Disposition: Home, Self Care Discharge Date/Time: 01/29/21 15:09
[2021-01-29] MEDS: COVID-19 VACC, MRNA(PFIZER)/PF 30 MCG/0.3 ML SYRINGE IM (14:42)
== END 2021-01-29 15:09 | disposition home or self-care (01) ==
PROVIDERS: Emergency Provider Emergency Medicine; PCP Student in an Organized Health Care Education/Training Program
DX: L03.115 Cellulitis of right lower limb (principal); Z23 Encounter for immunization; E66.9 Obesity, unspecified; Z90.49 Acquired absence of other specified parts of digestive tract; Z87.891 Personal history of nicotine dependence; J44.9 Chronic obstructive pulmonary disease, unspecified; I10 Essential (primary) hypertension
CPT/HCPCS: 91300; 99283

== ENCOUNTER 2021-02-20 18:32 | Emergency (ER) | payer MEDICAID, SELFPAY ==
[2021-02-20 18:33] VITALS: BP 162/106; PULSE 94; RESP 18; TEMP 37.1; O2SAT 95; BMI 52.2
--- NOTE | 2021-02-20 18:52 | EDS_ITS ---
HPI History of Present Illness Chief Complaint: Cellulitis Informant: patient Onset/Context/Timing Onset: Weeks Current Severity: Mild Maximum Severity: Moderate Narrative Narrative: Patient presents secondary to leg swelling and concern for continued cellulitis. Patient states he was seen approximately 2 weeks ago and diagnosed with cellulitis of his right lower leg. He was treated with Bactrim and Keflex. He continues to have swelling that is significantly worse after being on his feet all day. He does admit that the swelling goes down considerably after e levating his feet at night. He states he is starting to have some pain in his hip because of altered gait. He denies chest pain but has reported some mild shortness of breath. [facility] Medical History COPD (chronic obstructive pulmonary disease) HTN (hypertension) Home Medications amlodipine 10 mg PO DAILY 05/02/20 [History Last Taken Unknown] budesonide-formoterol 2 puff INHALATION BID 05/02/20 [History Last Taken Unknown] meclizine 25 mg PO BID PRN 05/02/20 [History Last Taken Unknown] paroxetine HCl 20 mg PO DAILY 05/02/20 [History Last Taken Unknown] cephalexin 500 mg PO Q6 #28 cap 01/29/21 [Rx Last Taken Unknown] ondansetron 4 mg PO Q6H PRN #14 tab 01/29/21 [Rx Last Taken Unknown] sulfamethoxazole-trimethoprim [Bactrim DS] 1 tab PO BID #14 tab 01/29/21 [Rx Last Taken Unknown] furosemide [Lasix] 40 mg PO DAILY #3 tab 02/20/21 [Rx Last Taken Unknown] Allergy/AdvReac Type Severity Reaction Status Date / Time No Known Allergies Allergy Verified 01/29/21 12:45 Surgical History Hx of cholecystectomy Social History Smoking Status: Former smoker ROS ROS ED Constitutional Constitutional ED: Denies chills or fever(s) Eyes Eyes: Denies blurry vision ENT ENT ED: Reports other Details: Congestion ; Denies rhinorrhea or sore throat Cardiovascular Cardiovascular: Denies chest pain or palpitations Respiratory/Chest Respiratory/Chest: Reports dyspnea Gastrointestinal Gastrointestinal: Denies abdominal pain, diarrhea, nausea or vomiting Musculoskeletal Musculoskeletal: Reports myalgias Integumentary Reports other Details: Right lower extremity edema Allergic/Immunologic Allergic/Immunologic ED: Denies urticaria EXAM Physical Exam Const Vital Signs: 02/20/21 18:33 Temperature 98.8 F Temperature Source Temporal Pulse Rate 94 Respiratory Rate 18 Blood Pressure 162/106 H Blood Pressure Mean 124 Pulse Ox 95 Oxygen Delivery Method Room Air Positive well nourished and well developed General Appearance ED: well developed HEENT Reports normocephalic and head/scalp atraumatic Eyes PERRL and EOMs intact bilaterally Neck supple Chest Wall inspection of chest normal and palpation of chest normal Resp normal respiratory effort and clear to auscultation bilaterally Cardio regular rate and regular rhythm GI normal to inspection, nondistended, normoactive bowel sounds and non-tender Palpation: soft Extremity Extremity Narrative: 3+ edema to the right lower extremity. 2+ left lower extremity edema. Chronic venous skin changes noted on both legs. No sign of acute infection at this time. Neuro oriented x3 and no sensory deficits noted Sensorium / Orientation: alert Motor Exam: strength 5/5 throughout Psych mental status grossly normal MDM MDM MDM Narrative Medical decision making narrative: Patient's exam is consistent with dependent edema and lymphedema. I will have him return tomorrow for outpatient venous ultrasound to ensure no evidence of DVT but my suspicion is low for this. Patient be given a dose of Lasix now and a prescription for 3 additional days. We will also apply Jorgito wrap to the right leg for mild compression to help with fluid reabsorption. I did discuss with him obtaining compression stockings. Discharge Plan Triage Chief Complaint: Cellulitis ED Provider: Ashwini Ferrell Dx/Rx/DC Orders Clinical Impression: Edema Instructions: ED Peripheral Edema, Unilateral Prescriptions: New furosemide [Lasix] 40 mg tablet 40 mg PO DAILY Qty: 3 RF: 0 No Action paroxetine HCl 20 MG tablet 20 mg PO DAILY RF: 0 budesonide-formoterol 1 INHALER inhaler 2 puff INHALATION BID RF: 0 amlodipine 5 MG tablet 10 mg PO DAILY RF: 0 meclizine 25 MG tablet 25 mg PO BID PRN (Reason: Dizziness) RF: 0 ondansetron 4 mg tablet,disintegrating 4 mg PO Q6H PRN (Reason: nausea and vomiting) Qty: 14 RF: 0 cephalexin 500 mg capsule 500 mg PO Q6 Qty: 28 RF: 0 sulfamethoxazole-trimethoprim [Bactrim DS] 800-160 mg tablet 1 tab PO BID Qty: 14 RF: 0 Primary Care Provider: Reji Ortiz Referrals: Reji Ortiz DO [Primary Care Provider] - 1-2 Weeks Disposition Disposition: Home, Self Care
[2021-02-20] MEDS: Furosemide 40 MG Tablet PO (19:04)
[2021-02-20 19:21] VITALS: PULSE 79; RESP 16; O2SAT 96
== END 2021-02-20 19:22 | disposition home or self-care (01) ==
PROVIDERS: Emergency Provider Emergency Medicine; PCP Student in an Organized Health Care Education/Training Program
DX: R60.0 Localized edema (principal); J44.9 Chronic obstructive pulmonary disease, unspecified; I10 Essential (primary) hypertension; Z87.891 Personal history of nicotine dependence; Z79.899 Other long term (current) drug therapy; Z90.49 Acquired absence of other specified parts of digestive tract
CPT/HCPCS: 99283

== ENCOUNTER → 2021-02-21 11:09 | Outpatient (CLI) | payer MEDICAID, SELFPAY ==
--- NOTE | 2021-02-21 11:16 | VDLE_ITS ---
Reason For Study: Swelling RIGHT GSV is normal. CFV is compressible, spontaneous, phasic, competent and demonstrates normal augmentation. FV is compressible, spontaneous, phasic, competent and demonstrates normal augmentation. POP V is compressible, spontaneous, phasic, competent and demonstrates normal augmentation. T/P Trunk is compressible. PTV is compressible. RT PerV is compressible. Procedure This is a venous duplex using B-mode, color flow and spectral Doppler. Exam performed in department. A preliminary report was called and/or faxed to PCP: Diana. Seen in ED 02/20/21, exam done as next day ED. VL/Venous Duplex US, Unilateral Interpretation Summary There is no evidence of right lower extremity deep vein thrombosis. Right great saphenous vein appears patent and compressible segmentally. Ordering Physician: Ashwini Ferrell Referring Physician: Reji Ortiz Performed By: Eleonora Vaca RVT
== END ==
PROVIDERS: PCP Student in an Organized Health Care Education/Training Program; Visit Provider Emergency Medicine
DX: M79.89 Other specified soft tissue disorders (principal)
CPT/HCPCS: 93971

== ENCOUNTER 2022-06-25 16:14 | Emergency (ER) | payer MEDICAID, SELFPAY ==
[2022-06-25 16:15] VITALS: BP 166/118; PULSE 112; RESP 18; TEMP 36.6; O2SAT 97
[2022-06-25 16:21] VITALS: BMI 34.6
--- NOTE | 2022-06-25 16:27 | EDS_ITS ---
HPI History of Present Illness Chief Complaint: Head Injury Detail of Chief Complaint: Concussion Informant: patient Onset/Context/Timing Onset: Days Context: Gradual Onset Timing: Waxes and wanes Current Severity: Mild Maximum Severity: Moderate Narrative Narrative: Patient presents secondary to concerns for concussion. He got up on the night of the and was sleepwalking. He fell face forward into his desk. He has photos of some facial injuries he had at the time. Since that time has had mild headache with difficulty concentrating and nausea. He went back to work this weekend had his noticed increased symptoms when he is at work and today vomited after eating lunch. He is not on blood thinners. He denies any other injury from his fall. [facility] Medical History COPD (chronic obstructive pulmonary disease) HTN (hypertension) [place] on CPAP Home Medications budesonide-formoterol HFA 160 mcg-4.5 mcg/actuation aerosol inhaler 2 puff inhalation BID 05/02/20 [History Last Taken Unknown] escitalopram oxalate 10 mg tablet 10 mg PO DAILY 06/25/22 [History Last Taken Unknown] hydrochlorothiazide 25 mg tablet 12.5 mg PO DAILY 06/25/22 [History Last Taken Unknown] lisinopril 10 mg tablet 10 mg PO DAILY 06/25/22 [History Last Taken Unknown] ondansetron 4 mg disintegrating tablet 4 mg PO Q8H PRN PRN Nausea #10 tabs 06/25/22 [Rx Last Taken Unknown] Allergy/AdvReac Type Severity Reaction Status Date / Time No Known Allergies Allergy Verified 06/25/22 16:17 Surgical History H/O knee surgery Hx of cholecystectomy Social History Smoking Status: Former smoker ROS ROS ED Constitutional Constitutional ED: Denies chills or fever(s) Eyes Eyes: Denies change in vision or discharge from eye(s) ENT ENT ED: Denies discharge from eye(s), rhinorrhea or sore throat Cardiovascular Cardiovascular: Denies chest pain or palpitations Respiratory/Chest Respiratory/Chest: Denies cough or dyspnea Gastrointestinal Gastrointestinal: Reports nausea and vomiting; Denies abdominal pain or diarrhea Musculoskeletal Musculoskeletal: Denies back pain or extremity pain Integumentary Denies Abrasions or rash Neurologic Neurologic: Reports headache(s); Denies weakness Psychiatric Psychiatric: Denies anxiety or depression Allergic/Immunologic Allergic/Immunologic ED: Denies lip swelling or urticaria EXAM Physical Exam Const Vital Signs: 06/25/22 16:15 06/25/22 16:22 Temperature 97.8 F Temperature Source Temporal Pulse Rate 112 H Respiratory Rate 18 Respiratory Effort Normal Respiratory Pattern Normal Blood Pressure 166/118 H Blood Pressure Mean 134 Pulse Ox 97 Positive well nourished, well developed and obese General Appearance ED: well developed Nutritional Appearance: obese HEENT Reports normocephalic and head/scalp atraumatic HEENT Narrative: Healing abrasion over the right upper forehead. No sign of infection. Eyes PERRL and EOMs intact bilaterally Neck supple Chest Wall inspection of chest normal and palpation of chest normal Resp normal respiratory effort and clear to auscultation bilaterally Cardio regular rate and regular rhythm GI normal to inspection, nondistended, normoactive bowel sounds Palpation: soft Extremity normal to inspection Neuro oriented x3 and no sensory deficits noted Sensorium / Orientation: alert Motor Exam: strength 5/5 throughout Psych mental status grossly normal Skin no rashes or lesions noted MDM MDM MDM Narrative Medical decision making narrative: Patient sent for CT scan of the head. Radiography Diagnostic Testing: Clinical Impression(s) from Imaging Studies Brain CT 06/25/22 16:27 IMPRESSION: Negative head/brain CT without intravenous contrast. Electronically Signed: Felipe Steven MD at 17:22 EST Reading Location ID and State: [facility] / [place] , Service support , Treatment and Re-Evaluation :: CT head reveals no acute abnormalities. Patient is reassured that symptoms are consistent with concussion, but no evidence of intracranial hemorrhage or other acute abnormality. He was advised that symptoms of a concussion can persist up to 6 weeks. He will be written for Zofran to have as needed. Return instructions given. Discharge Plan Triage Chief Complaint: Head Injury ED Provider: Ashwini Ferrell Dx/Rx/DC Orders Clinical Impression: Concussion Instructions: ED Concussion Prescriptions: New ondansetron 4 mg tablet,disintegrating 4 mg PO Q8H PRN PRN (Reason: Nausea) Qty: 10 0RF No Action budesonide-formoterol 1 INHALER inhaler 2 puff INHALATION BID Label Comments: INHALE 2 (TWO) puffs BY MOUTH TWICE DAILY lisinopril 10 mg tablet 10 mg PO DAILY Label Comments: Take 1 tablet by mouth once daily. hydrochlorothiazide 25 mg tablet 12.5 mg PO DAILY Label Comments: Take 1 tablet by mouth once daily. escitalopram oxalate 10 mg tablet 10 mg PO DAILY Label Comments: TAKE 1 TABLET BY MOUTH EVERY DAY Primary Care Provider: Eric Carter Referrals: Reji Ortiz DO [Non-Staff] - Eric Carter MD [Primary Care Provider] - 1 Week Disposition Disposition: Home, Self Care
--- NOTE | 2022-06-25 16:27 | CT_ITS ---
EXAM: CT HEAD WITHOUT INTRAVENOUS CONTRAST CLINICAL INDICATION: closed head injury TECHNIQUE: Multiple axial images were obtained of the head without intravenous contrast. This CT exam was performed using one or more of the following dose reduction techniques: automated exposure control, adjustment of the mA and/or kV according to patient size, and/or use of iterative reconstruction technique. This report was created using [employer] report generation technology. RADIATION DOSE: CTDIvol = 44.99 mGy, DLP = 812.98 mGy-cm COMPARISON: 5.22.19 FINDINGS: BRAIN AND EXTRA-AXIAL SPACES: Unremarkable. No intra- or extra-axial hemorrhage. No evidence of acute infarct. No intracranial mass or mass effect. There is preservation of the stringer/white matter interface. Posterior fossa structures are unremarkable. Ventricles are appropriate for age. No hydrocephalus. Basal cisterns are patent. BONES/JOINTS: Unremarkable. No discrete lytic or blastic abnormalities. SINUSES: Unremarkable as visualized. Clear. MASTOID AIR CELLS: Unremarkable. Clear. ORBITS: Visualized globes, extraocular muscles, optic nerves and retrobulbar fat appear unremarkable. CT/Brain/Head without Contrast IMPRESSION: Negative head/brain CT without intravenous contrast. Electronically Signed: Felipe Steven MD at 17:22 EST ,
== END 2022-06-25 18:29 | disposition home or self-care (01) ==
PROVIDERS: Emergency Provider Emergency Medicine; PCP Family Medicine; Visit Provider Emergency Medicine
DX: S06.0X0A Concussion without loss of consciousness, initial encounter (principal); J44.9 Chronic obstructive pulmonary disease, unspecified; Z87.891 Personal history of nicotine dependence; I10 Essential (primary) hypertension; G47.33 Obstructive sleep apnea (adult) (pediatric); W22.8XXA Striking against or struck by other objects, initial encounter
CPT/HCPCS: 70450; 99282

== ENCOUNTER 2023-09-18 10:51 | Emergency (ER) | payer SELFPAY ==
[2023-09-18 10:51] VITALS: BP 179/101; PULSE 75; RESP 18; TEMP 36.3; O2SAT 98; BMI 48.9
--- NOTE | 2023-09-18 11:01 | EDS_ITS ---
HPI History of Present Illness Chief Complaint: Complaint Informant: patient Narrative Narrative: 47-year-old male presenting to the emergency room with chief complaint of urinary frequency and dysuria. Patient states that after/during urination he feels like the tip of his penis is burning. 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 He is having small amounts of urination at a time but does feel like his bladder is emptying. He denies any fevers flank pain nausea vomiting. He denies rashes. He denies history of UTI. He states he is not a diabetic. He is treated for COPD and hypertension. He denies blood in the urine. He tried some [id number] Azo which did not help him. He denies any sexual behaviors or changes in lube's lotions. No drainage from the penis. No rashes. No testicular pain or swelling. [facility] Medical History [place] on CPAP COPD (chronic obstructive pulmonary disease) HTN (hypertension) Home Medications ?Medication ?Instructions ?Recorded ?Last Taken ?Type budesonide-formoterol HFA 160 2 puff inhalation BID 05/02/20 Unknown History mcg-4.5 mcg/actuation aerosol inhaler escitalopram oxalate 10 mg tablet 10 mg PO DAILY 06/25/22 Unknown History hydrochlorothiazide 25 mg tablet 12.5 mg PO DAILY 06/25/22 Unknown History ondansetron 4 mg disintegrating 4 mg PO Q8H PRN PRN Nausea #10 tabs 06/25/22 Unknown Rx tablet albuterol sulfate 90 mcg/actuation 2 puff inhalation Q4H PRN PRN 09/18/23 Unknown History aerosol inhaler wheezing lisinopril 20 mg tablet 20 mg PO DAILY 09/18/23 Unknown History sulfamethoxazole 800 1 tab PO BID #14 tabs 09/18/23 Unknown Rx mg-trimethoprim 160 mg tablet (Bactrim DS) Allergy/AdvReac Type Severity Reaction Status Date / Time No Known Allergies Allergy Verified 09/18/23 10:51 Surgical History H/O knee surgery Hx of cholecystectomy Social History Smoking Status: Former smoker ROS ROS ED Constitutional Constitutional ED: Denies chills, fever(s) or weight loss Eyes Eyes: Denies change in vision or diplopia ENT ENT ED: Denies ear pain, rhinorrhea or sore throat Cardiovascular Cardiovascular: Denies chest pain, orthopnea, palpitations or racing heartbeat Respiratory/Chest Respiratory/Chest: Denies cough, dyspnea or orthopnea Gastrointestinal Gastrointestinal: Denies abdominal pain, diarrhea, nausea or vomiting Genitourinary Genitourinary ED: Reports dysuria and urinary frequency; Denies hematuria Musculoskeletal Musculoskeletal: Denies arthralgias, back pain or myalgias Integumentary Denies abscess or rash Neurologic Neurologic: Denies headache(s) or weakness Psychiatric Psychiatric: Denies anxiety, depression, suicidal ideation or suicidal thoughts Endocrine Endocrinology: Denies polydipsia, polyphagia or polyuria Allergic/Immunologic Allergic/Immunologic ED: Denies mouth swelling, tongue swelling or urticaria EXAM Physical Exam Const Vital Signs: 09/18/23 10:51 Temperature 97.4 F L Temperature Source Temporal Pulse Rate 75 Respiratory Rate 18 Blood Pressure 179/101 H Blood Pressure Mean 127 Pulse Ox 98 Oxygen Delivery Method Room Air Positive well nourished, well developed and obese General Appearance ED: well developed Nutritional Appearance: obese HEENT Reports normocephalic, head/scalp atraumatic and moist mucous membranes Eyes PERRL and EOMs intact bilaterally Neck no lymphadenopathy, supple and no JVD Resp normal respiratory effort and clear to auscultation bilaterally Cardio regular rate, regular rhythm and no murmurs GI normal to inspection, nondistended, normoactive bowel sounds and non-tender Palpation: soft Narrative: Circumcised male. No penile lesions. Testicles appear normal. No meatal swelling. No discharge. Back/Spine no CVA tenderness and normal ROM Extremity normal to inspection General Extremety ED: Negative for edema General Extremity: Negative for edema Neuro oriented x3 and CN's II-XII intact bilaterally Sensorium / Orientation: alert Motor Exam: strength 5/5 throughout Psych mental status grossly normal Mood & Affect: Negative for depressed or tearful Skin no rashes or lesions noted and no wounds Skin Narrative: Venous stasis changes of the lower extremity with varicose veins. MDM MDM MDM Narrative Medical decision making narrative: Differential diagnosis includes but not limited to due to urethritis STD acute cystitis kidney stone urinary retention bladder cancer bladder stone. Urinalysis shows no bacteria no white cells negative ketones negative nitrates. Will be sent for culture. Penile exam is unremarkable. Due to the patient's symptomology and using shared decision making I will place him on Bactrim. Should he not improve have asked that he follow-up with his family doctor he may need more further investigation including imaging. Patient is understanding this plan is comfortable with it. He understands return instructions and fol low-up Lab Data Labs: Laboratory Results - last 24 hr 09/18/23 11:00 Urine Color Yellow Urine Clarity Clear Urine pH 6.0 Ur Specific [place] 1.015 Urine Protein 15 H Urine Glucose (UA) Normal Urine Ketones Negative Urine Occult Blood 10 H Urine Nitrite Negative Urine Bilirubin Negative Urine Urobilinogen 1 H Ur Leukocyte Esterase 25 H Urine RBC 0 SEEN Urine WBC 0 SEEN Ur Squamous Epith Cells 0 SEEN Urine Bacteria 0 SEEN Urine Mucus 0 SEEN Discharge Plan Triage Chief Complaint: Complaint ED Provider: Guzman Johnson Dx/Rx/DC Orders Clinical Impression: Dysuria, Urinary frequency Instructions: Dysuria Prescriptions: New sulfamethoxazole-trimethoprim [Bactrim DS] 800-160 mg tablet 1 tab PO BID Qty: 14 0RF No Action budesonide-formoterol 1 INHALER inhaler 2 puff INHALATION BID Patient Comments: INHALE 2 (TWO) puffs BY MOUTH TWICE DAILY hydrochlorothiazide 25 mg tablet 12.5 mg PO DAILY Patient Comments: Take 1 tablet by mouth once daily. escitalopram oxalate 10 mg tablet 10 mg PO DAILY Patient Comments: TAKE 1 TABLET BY MOUTH EVERY DAY ondansetron 4 mg tablet,disintegrating 4 mg PO Q8H PRN PRN (Reason: Nausea) Qty: 10 0RF lisinopril 20 mg tablet 20 mg PO DAILY albuterol sulfate 90 mcg/actuation HFA aerosol inhaler 2 puff inhalation Q4H PRN PRN (Reason: wheezing) Primary Care Provider: Eric Carter Referrals: Eric Carter MD [Primary Care Provider] - 5-7 Days (if not improving ) Activity Restrictions/Additional Instructions: Please return to emergency department if you have any concerns or feel that you are worsening. Print Language: Swiss Disposition Disposition: Home, Self Care
[2023-09-18 11:07] LABS: Bacteria 0 SEEN /hpf (None Seen); Mucous, Urine 0 SEEN /hpf (<or=2+); Red Blood Cells-Urine 0 SEEN /hpf (0-5); Squamous Epithelial Cells - UA 0 SEEN /hpf (0-5); White Blood Cells 0 SEEN /hpf (0-5)
[2023-09-18 11:11] LABS: Color, Urine Yellow (Yellow); Glucose, Dipstick Normal (Normal); Ketone-Dipstick Negative (Negative); Leukocyte Esterase-Dipstick 25 /ul (Negative); Nitrite-Dipstick Negative (Negative); Occult Blood-Urine 10 /ul (Negative); Protein-Dipstick 15 mg/dl (Negative); Specific Gravity, Urine 1.015 (1.002-1.030); Urine Bilirubin Dipstick Negative (Negative); Urine Clarity Clear (Clear); Urine Urobilinogen 1 mg/dl (Normal)
== END 2023-09-18 11:52 | disposition home or self-care (01) ==
LOC: ED 11:48
PROVIDERS: Emergency Provider Emergency Medicine; PCP Family Medicine; Visit Provider Emergency Medicine
DX: R30.0 Dysuria (principal); J44.9 Chronic obstructive pulmonary disease, unspecified; I10 Essential (primary) hypertension; R35.0 Frequency of micturition; Z87.891 Personal history of nicotine dependence; G47.33 Obstructive sleep apnea (adult) (pediatric); Z99.89 Dependence on other enabling machines and devices; Z79.899 Other long term (current) drug therapy; Z79.51 Long term (current) use of inhaled steroids; Z90.49 Acquired absence of other specified parts of digestive tract
CPT/HCPCS: 81001; 87086; 99282

== ENCOUNTER 2024-05-18 09:54 | Emergency (ER) | payer SELFPAY ==
[2024-05-18 09:55] VITALS: BP 172/121; PULSE 92; RESP 18; TEMP 36.8; O2SAT 96; BMI 51.5
--- NOTE | 2024-05-18 10:30 | EX.ED.DYSGE1 ---
HPI History of Present Illness Chief Complaint: Cellulitis Informant: patient Onset/Context/Timing Onset: Days (2) Context: Gradual Onset Timing: Continuous Quality: Burning Location: Right lower leg Worsened by: Nothing Relieved by: Nothing Narrative Narrative: Patient presents with redness and swelling to his right lower leg has been getting worse over the past 2 days. Patient states he was recently diagnosed with cellulitis and was admitted to the hospital for that. Patient states he finished the course of oral antibiotics and was doing better. Patient states that over the last 2 days he noted some burning again in his right lower leg. Patient denies any fevers or chills. Patient denies any discharge or drainage. Patient states nothing makes it better and nothing makes it worse. Prior similar symptoms: Yes (With cellulitis) PFSH PFS Medical History Tobacco dependency Pre-diabetes Cellulitis [place] on CPAP COPD (chronic obstructive pulmonary disease) HTN (hypertension) Home Medications ?Medication ?Instructions ?Recorded ?Last Taken ?Type budesonide-formoterol HFA 160 2 puff inhalation BID 05/02/20 Unknown History mcg-4.5 mcg/actuation aerosol inhaler escitalopram oxalate 10 mg tablet 10 mg PO DAILY 06/25/22 Unknown History hydrochlorothiazide 25 mg tablet 12.5 mg PO DAILY 06/25/22 Unknown History ondansetron 4 mg disintegrating 4 mg PO Q8H PRN PRN Nausea #10 tabs 06/25/22 Unknown Rx tablet albuterol sulfate 90 mcg/actuation 2 puff inhalation Q4H PRN PRN 09/18/23 Unknown History aerosol inhaler wheezing lisinopril 20 mg tablet 20 mg PO DAILY 09/18/23 Unknown History sulfamethoxazole 800 1 tab PO BID #14 tabs 09/18/23 Unknown Rx mg-trimethoprim 160 mg tablet (Bactrim DS) cephalexin 500 mg capsule 500 mg PO Q6 #40 CAPSULES 05/18/24 Unknown Rx Allergy/AdvReac Type Severity Reaction Status Date / Time No Known Allergies Allergy Verified 05/18/24 09:55 Surgical History H/O knee surgery Hx of cholecystectomy Social History Smoking Status: Heavy Smoker (>10/day) ROS ROS ED Constitutional Constitutional ED: Denies chills or fever(s) Eyes Eyes: Denies blurry vision or change in vision ENT ENT ED: Denies rhinorrhea or sore throat Cardiovascular Cardiovascular: Denies chest pain or palpitations Respiratory/Chest Respiratory/Chest: Denies cough or dyspnea Gastrointestinal Gastrointestinal: Denies nausea or vomiting Genitourinary Genitourinary ED: Denies dysuria or hematuria Musculoskeletal Musculoskeletal: Denies back pain or neck pain Integumentary Denies abscess or rash Neurologic Neurologic: Denies headache(s) or weakness Allergic/Immunologic Allergic/Immunologic ED: Denies mouth swelling or urticaria EXAM Physical Exam Const Vital Signs: 05/18/24 09:55 Temperature 98.3 F Temperature Source Oral Pulse Rate 92 Respiratory Rate 18 Blood Pressure 172/121 H Blood Pressure Mean 138 Pulse Ox 96 Oxygen Delivery Method Room Air Positive well nourished and well developed General Appearance ED: well developed and NAD HEENT Reports moist mucous membranes Neck supple and no JVD Extremity Extremity Narrative: There is erythema and warmth over the anterior aspect of the right lower leg. There are no vesicles or pustules noted. There is no discharge or drainage noted. There is full range of motion. Sensation is intact to light touch bilaterally in the lower extremities. Strength is 5/5 bilaterally in the lower extremities. Pedal pulses are equal bilaterally. General Extremety ED: Yes edema General Extremity: edema Neuro oriented x3, CN's II-XII intact bilaterally and no sensory deficits noted Sensorium / Orientation: alert Motor Exam: strength 5/5 throughout Psych mental status grossly normal MDM MDM MDM Narrative Medical decision making narrative: Smoking cessation was discussed. Patient was advised that this is likely a recurrence of his cellulitis. Patient is afebrile and does not show any signs of sepsis. Patient was given a dose of Keflex here. Patient was given a prescription for Keflex. Patient was instructed to take Tylenol or ibuprofen as needed for any pain or fevers. Patient was instructed to follow-up with his primary care physician in 5 to 7 days. Patient was instructed to return if worse in any way. Patient understood and was agreeable with the plan. All questions were answered. Discharge Plan Triage Chief Complaint: Cellulitis ED Provider: Kyle Hameed Dx/Rx/DC Orders Clinical Impression: Cellulitis of right anterior lower leg, History of hypertension Instructions: ED Cellulitis Prescriptions: New cephalexin 500 mg capsule 500 mg PO Q6 Qty: 40 0RF No Action budesonide-formoterol 1 INHALER inhaler 2 puff INHALATION BID Patient Comments: INHALE 2 (TWO) puffs BY MOUTH TWICE DAILY hydrochlorothiazide 25 mg tablet 12.5 mg PO DAILY Patient Comments: Take 1 tablet by mouth once daily. escitalopram oxalate 10 mg tablet 10 mg PO DAILY Patient Comments: TAKE 1 TABLET BY MOUTH EVERY DAY ondansetron 4 mg tablet,disintegrating 4 mg PO Q8H PRN PRN (Reason: Nausea) Qty: 10 0RF lisinopril 20 mg tablet 20 mg PO DAILY albuterol sulfate 90 mcg/actuation HFA aerosol inhaler 2 puff inhalation Q4H PRN PRN (Reason: wheezing) sulfamethoxazole-trimethoprim [Bactrim DS] 800-160 mg tablet 1 tab PO BID Qty: 14 0RF Primary Care Provider: Eric Carter Referrals: Eric Carter MD [Primary Care Provider] - 5-7 Days Print Language: Tristanian Disposition Disposition: Home, Self Care
[2024-05-18] MEDS: Cephalexin 500 MG Capsule PO (10:50)
[2024-05-18 10:55] VITALS: BP 139/82; PULSE 84; RESP 16; TEMP 36.4; O2SAT 100
== END 2024-05-18 10:56 | disposition home or self-care (01) ==
LOC: ED 10:47
PROVIDERS: Emergency Provider Emergency Medicine; PCP Family Medicine; Visit Provider Emergency Medicine
DX: L03.115 Cellulitis of right lower limb (principal); J44.9 Chronic obstructive pulmonary disease, unspecified; I10 Essential (primary) hypertension; F17.210 Nicotine dependence, cigarettes, uncomplicated; Z90.49 Acquired absence of other specified parts of digestive tract; G47.33 Obstructive sleep apnea (adult) (pediatric); Z99.89 Dependence on other enabling machines and devices
CPT/HCPCS: 99282